=== PATIENT | male | born 1995 ===

== ENCOUNTER 2017-12-12 18:34 | Emergency (ER) | payer OTHER, BC ==
[2017-12-12 20:21] VITALS: BP 143/72
--- NOTE | 2017-12-12 20:33 | UC ---
Skin Complaint HPI - HPI Summary HPI Summary: Pt presents c/o of "spider bite" to right forearm. Pt states that "bite are" blistered and now has spread on forearm. - History of Current Complaint Chief Complaint: [facility] Time Seen by Provider: 12/12/17 20:28 Stated Complaint: SKIN ISSUE Hx Obtained From: Patient Onset/Duration: Sudden Onset, Worse Since - onset Timing: Constant Onset Severity: Mild Current Severity: Mild Pain Intensity: 0 Location: Discrete Character: Pruritus, Raised Aggravating Factor(s): Touch Associated Signs & Symptoms: Positive: Rash, Drainage Related History: Possible Reaction to: Insect - Allergy/Home Medications Allergies/Adverse Reactions: Allergies Allergy/AdvReac Type Severity Reaction Status Date / Time No Known Allergies Allergy Verified 12/12/17 20:18 Review of Systems Constitutional: Negative Skin: Rash, Other - erythema Eyes: Drainage ENT: Negative Respiratory: Negative Cardiovascular: Negative Gastrointestinal: Negative Genitourinary: Negative Motor: Negative Neurovascular: Negative Musculoskeletal: Negative Neurological: Negative Psychological: Negative Is Patient Immunocompromised?: No All Other Systems Reviewed And Are Negative: Yes PMH/Surg Hx/FS Hx/Imm Hx Previously Healthy: Yes - Surgical History Surgical History: Yes Surgery Procedure, Year, and Place: TONSILLECTOMY. WISDOM TEETH - Family History Known Family History: Positive: Cardiac Disease - Social History Occupation: Student - [employer] Alcohol Use: Occasionally Substance Use Type: None Smoking Status (MU): Never Smoked Tobacco Have You Smoked in the Last Year: No - Immunization History Vaccination Up to Date: Yes Physical Exam Triage Information Reviewed: Yes Appearance: Well-Appearing Vital Signs: Initial Vital Signs Temp 98.3 F 12/12/17 20:16 Pulse 66 12/12/17 20:16 Resp 16 12/12/17 20:16 BP 143/72 12/12/17 20:16 Pulse Ox 99 12/12/17 20:16 Vital Signs Reviewed: Yes Eye Exam: Normal ENT: Positive: Hearing grossly normal Dental Exam: Normal Neck exam: Normal Respiratory: Positive: No respiratory distress Musculoskeletal Exam: Normal Neurological Exam: Normal Psychological Exam: Normal Skin: Positive: rashes - circular open wound with dried crusted, serous drainage , erythema pin prick area surrounding wound Course/Dx - Differential Diagnoses - Skin Complaint Differential Diagnoses: Cellulitis, Poison [place] - Diagnoses Provider Diagnoses: cellulitis Discharge - Sign-Out/Discharge Documenting (check all that apply): Patient Departure All imaging exams completed and their final reports reviewed: No Studies - Discharge Plan Condition: Stable Disposition: HOME Prescriptions: Cephalexin CAP* [Keflex 500 CAP*] 500 mg PO Q12H #14 cap Patient Education Materials: Cellulitis (DC) Referrals: No Primary Care Phys,NOPCP [Primary Care Provider] - [facility] [Outside] - If Needed - Billing Disposition and Condition Condition: STABLE Disposition: Home
[2017-12-12] MEDS ORDERED: Cephalexin CAP* 500 MG PO ONE (20:35)
== END 2017-12-12 20:52 | disposition home or self-care (01) ==
LOC: UCCORT 18:34
DX: L03.113 Cellulitis of right upper limb (principal)
CPT/HCPCS: 99202; A9270-GY; G0463